=== PATIENT | male | born 1970 | race Caucasian/White ===

== ENCOUNTER 2020-03-13 13:24 | Emergency (ER) | payer OTHER, SELFPAY ==
--- NOTE | ~2020-03-13 | XR_ITS ---
EXAMINATION: XR finger 5th RT min 2V DATE: 03/13/2020 14:02 INDICATION: Right hand fifth digit injury and swelling. TECHNIQUE: 4 views of right hand fifth digit were obtained. COMPARISON: None. FINDINGS: There is a nondisplaced chip avulsion fracture of palmar base of fifth middle phalanx. Join t spaces are normal. Soft tissue swelling is noted. IMPRESSION: 1. Nondisplaced chip avulsion fracture of palmar base of fifth middle phalanx. Reviewed, dictated and finalized at location A.
--- NOTE | ~2020-03-13 | XR_ITS ---
EXAMINATION: XR ankle RT min 3V INDICATION: Right ankle pain and swelling TECHNIQUE: Four views of the right ankle are obtained. COMPARISON: None available FINDINGS: Ankle soft tissue swelling is present. Bone alignment is normal. There is no fracture. IMPRESSION: 1. Ankle soft tissue swelling without acute osseous abnormality. Reviewed, dictated and finalized at location A.
[2020-03-13 13:45] VITALS: BP 162/77; PULSE 65; RESP 16; TEMP 36.4; O2SAT 100
--- NOTE | 2020-03-13 14:23 | ED.GENADULT ---
HPI - General Adult General Chief complaint: Extremity Injury, Lower Stated complaint: injury Time Seen by Provider: 03/13/20 14:14 Source: patient and RN notes reviewed Mode of arrival: ambulatory Limitations: no limitations History of Present Illness HPI narrative: Patient presents today complaining of an injury to his right ankle and right fifth finger. In December, he slipped and fell, injuring his finger and states it has not started to heal yet. He does report some intermittent tingling in the finger. States he is unable to bend it or flex it all the way due to swelling. 4 days ago, he slipped on some wet stairs, twisting his right ankle. He has been ambulatory with increased pain. Currently rates his pain 5/10 and has been taking Advil. Denies numbness or tingling in the leg or foot. MD complaint: Right finger and right ankle injury Related Data Allergies Allergy/AdvReac Type Severity Reaction Status Date / Time No Known Allergies Allergy Verified 03/13/20 13:26 Review of Systems Review of Systems: Narrative: CONSTITUTIONAL: Denies body aches, fever, chills, or sweats. EYES: Denies visual changes, redness, or discharge. ENT: Denies rhinorrhea, congestion, sore throat, or otalgia. CARDIOVASCULAR: Denies chest pain, palpitations, or edema. RESPIRATORY: Denies cough or dyspnea. GASTROINTESTINAL: Denies abdominal pain, nausea, vomiting, or diarrhea. GENITOURINARY: Denies dysuria or hematuria. SKIN: Denies rash, itching, or wounds. MUSCULOSKELETAL: Denies back pain, or myalgia.+ Right fifth finger injury, right ankle injury NEUROLOGIC: Denies headache, numbness, tingling, or weakness. PSYCH: Denies depression or anxiety. [facility] Family History Family History (Updated 03/01/19 @ 14:15 by DOCTOR UNKNOWN) Father Malignant neoplasm of prostate Family history of malignant melanoma Social History Social History Smoking status: Former smoker Smoking end date: 09/29/93 Alcohol intake: current Gender identity (if verbalized by the patient): Male Comments At time of signature, I have reviewed and agree with nursing past medical, surgical, social and family history unless otherwise noted. Please see nursing chart for further information. There is no relevant family history pertinent to the presenting complaint Exam Narrative: Exam Narrative: GENERAL: Well-appearing, well-nourished, and in no acute distress. HEAD: Normocephalic, atraumatic. EYES: EOMI. No redness or drainage. Conjunctivae normal. ENT: Mucous membranes pink and moist. NECK: Normal AROM. CHEST: No respiratory distress. EXTREMITIES: Right ankle: Soft tissue tenderness posteriorly to the lateral malleolus. Moderate ecchymosis to the lateral ankle and proximal lateral foot. 2-3+ pitting edema to the ankle and foot. Distal sensation intact. Capillary refill normal. Pedal pulse normal. Full AROM of the toes and ankle. Pain increases with flexion of the ankle, but not with extension. No bony tenderness of the medial ankle or foot. Right fifth finger. Tenderness and swelling to the proximal and middle phalanx with mild ecchymosis. Distal sensation intact. Capillary refill normal. Somewhat decreased AROM due to swelling. SKIN: Warm, dry, no rash. Capillary refill normal. Normal skin turgor. NEURO: No focal deficits. Alert and oriented x3. Gait steady. PSYCH: Normal affect. No signs of depression or anxiety. Course Vital Signs Vital signs: Vital Signs Temperature 97.6 F 03/13/20 13:45 Pulse Rate 65 03/13/20 13:45 Respiratory Rate 16 03/13/20 13:45 Blood Pressure 162/77 H 03/13/20 13:45 Pulse Oximetry 100 03/13/20 13:45 Temperature 97.6 F 03/13/20 13:45 Pulse Rate 65 03/13/20 13:45 Respiratory Rate 16 03/13/20 13:45 Blood Pressure 162/77 H 03/13/20 13:45 Pulse Oximetry 100 03/13/20 13:45 Reviewed. Pt has been instructed to follow up with his PCP regarding his elevated blood pressure today. [facility]
== END 2020-03-13 14:45 | disposition home or self-care (01) ==
PROVIDERS: Emergency Provider Nurse Practitioner; PCP Internal Medicine
DX: S62.656A Nondisplaced fracture of middle phalanx of right little finger, initial encounter for closed fracture (principal); S93.401A Sprain of unspecified ligament of right ankle, initial encounter; I10 Essential (primary) hypertension; W18.49XA Other slipping, tripping and stumbling without falling, initial encounter
CPT/HCPCS: 29130; 73140; 73610; 99214; G0463